=== PATIENT | female | born 1955 | race Caucasian/White ===

== ENCOUNTER → 2023-06-27 | Day surgery (SDC) | payer OTHER ==
[~2023-06-27] MED LIST: LIDOCAINE 1% MPF 5 ML VIAL ONE; propofoL 200 MG/20 ML VIAL IV ONE
[2023-06-27 11:18] VITALS: BP 123/50; TEMP 97.8; O2SAT 97
--- NOTE | 2023-06-27 13:22 | TEE ---
TRANSESOPHAGEAL ECHOCARDIOGRAM REPORT CARDIOLOGY DEPARTMENT DATE OF STUDY: 06/27/2023 HEIGHT: 5'5" WEIGHT: 229 lbs DIAGNOSIS: PRE ABLATION GLUE SPRAYER COMMENTS: KAUSHIK CARDIAC HISTORY: CATHERIZATION: SURGERY: PROSTHETIC VALVE: PACEMAKER: 2 DIMENSIONAL ASSESSMENT: RIGHT ATRIUM: LEFT ATRIUM: RIGHT VENTRICLE: LEFT VENTRICLE: TRICUSPID VALVE: MITRAL VALVE: PULMONIC VALVE: AORTIC VALVE: PERICARDIAL EFFUSION: AORTIC ROOT: EJECTION FRACTION: LEFT VENTRICULAR WALL MOTION: DOPPLER/COLOR FLOW: COMMENTS: 1. TRANSESOPHAGEAL ECHOCARDIOGRAM PROBE WAS INSERTED, NO DIFFICULTY 2. NO LEFT ATRIAL APPENDAGE THOMSADIQ IS SEEN TECHNOLOGIST: BEV STOCK
--- NOTE | 2023-06-27 13:23 | OP ---
Date of Procedure: 06/27/2023 Surgeon: JAMAL CAMPA Procedure Performed: Transesophageal echocardiogram. Reason: To evaluate for left atrial appendage thrombus before ablation. Description Of Procedure: After risks, benefits, and alternatives were explained, patient agreed to procedure and signed informed consent. Patient was brought into the OR room 5. After proper time-ou t, Anesthesia applied propofol, then KAUSHIK probe was inserted without difficulty. No thrombus was seen in the appendage. KAUSHIK probe was removed and patient was sent to Recovery in stable condition. Conclusion: Successful KAUSHIK and no left atrial appendage thrombus was seen. SR/MODL Voice ID: [id number] Report ID: [id number]
== END ==
LOC: EKG 08:00
PROVIDERS: ATTEND Internal Medicine
DX: I48.11 Longstanding persistent atrial fibrillation (principal); I10 Essential (primary) hypertension; Z79.01 Long term (current) use of anticoagulants; Z79.899 Other long term (current) drug therapy; Z82.49 Family history of ischemic heart disease and other diseases of the circulatory system
CPT/HCPCS: 93312